=== PATIENT | male | born 1990 | race Caucasian/White ===

== ENCOUNTER 2022-05-31 06:10 | Emergency (ER) | payer BC, OTHER ==
[~2022-05-31] VITALS: Ht 190.5 cm; Wt 81.6 kg
[2022-05-31 06:28] VITALS: BP 140/66
[2022-05-31] MEDS ORDERED: BACI30OI9 TP ×2 (06:47→06:53)
[2022-05-31] MEDS ORDERED: CLIN300C12 PO ×2 (06:47→06:53)
--- NOTE | 2022-05-31 06:55 | NUR ---
Patient discharged to home in stable condition. Written and verbal after care instructions given. Patient verbalizes understanding of instruction.
== END 2022-05-31 06:57 | disposition home or self-care (01) ==
LOC: ER 06:15
DX: L03.211 Cellulitis of face (principal); F15.10 Other stimulant abuse, uncomplicated; Z59.00 Homelessness unspecified

== ENCOUNTER 2022-06-05 22:12 | Emergency (ER) | payer BC, MEDICAID, OTHER ==
[~2022-06-05] VITALS: Ht 190.5 cm; Wt 77.1 kg
[~2022-06-05 22:12] MED LIST: BACI30OI9 TP; CLIN300C12 PO
--- NOTE | 2022-06-05 22:23 | NUR ---
[address] C/O EYE PAIN S/P PEPPER SPRAYED PT ABLE TO AMBULATE WITH STEADY GAIT. ABLE TO SEE
[2022-06-05] MEDS ORDERED: FLUORESCEIN SODIUM OPHTH 1 EA STRIP ONE (22:29)
[2022-06-05] MEDS ORDERED: FLUORESCEIN SODIUM OPHTH 1 EA STRIP OP ONE (22:30)
[2022-06-05] MEDS ORDERED: TETRACAINE HCL 0.5% OPHTALMIC 15 ML BOTTLE OP ONE (22:30)
--- NOTE | 2022-06-05 22:47 | NUR ---
GAURAV LEA AT PT'S BEDSIDE
[2022-06-05] MEDS ORDERED: SOD BORATE/BORIC AC/H2O/NACL 118 ML BOTTLE OP ONE (23:00)
[2022-06-05] MEDS ORDERED: SOD BORATE/BORIC AC/H2O/NACL 118 ML BOTTLE ONE (23:02)
[2022-06-05] MEDS ORDERED: NALO4SPR BNOSTRILS (23:21)
--- NOTE | 2022-06-05 23:37 | NUR ---
Patient discharged to home in stable condition. RX Written and verbal after care instructions given. Patient verbalizes understanding of instruction. PT ambulatory with a steady gait
[2022-06-06 01:00] VITALS: BP 129/87
== END 2022-06-06 01:00 | disposition home or self-care (01) ==
LOC: ER 22:14
DX: H10.213 Acute toxic conjunctivitis, bilateral (principal); F17.200 Nicotine dependence, unspecified, uncomplicated; Z59.00 Homelessness unspecified; Z79.899 Other long term (current) drug therapy